=== PATIENT | male | born 1985 | race Hispanic/Latino ===

== ENCOUNTER 2022-11-02 13:31 | Emergency (ER) | payer SELFPAY ==
[2022-11-02 14:47] LABS: Absolute Lymphocytes (CBC) 1.3 K/uL (0.7-4.9); Hematocrit 42.3 % (39.6-49.0); Lymphocytes % 17.3 % (15.3-44.8); MCV 90.3 fL (80-100); MPV 9.3 fL (7.6-11.3); RBC Red Blood Cell Count 4.68 M/uL (4.33-5.43)
--- NOTE | 2022-11-02 15:04 | RAD REPORT ---
EXAM DESCRIPTION: RAD - Chest Single View - 11/02/2022 2:27 pm CLINICAL HISTORY: DYSPNEA Chest pain. COMPARISON: No comparisons FINDINGS: Portable technique limits examination quality. The lungs are grossly clear. The heart is normal in size. No displaced fractures. IMPRESSION: No acute intrathoracic process suspected.
[2022-11-02 15:15] LABS: Albumin 3.9 g/dL (3.4-5.0); Bilirubin Total 1.2 mg/dL (0.2-1.0); Potassium 3.7 mmol/L (3.5-5.1); Protein, Total 7.5 g/dL (6.4-8.2); Thyroid Stimulating Hormone 0.993 uIU/mL (0.358-3.740); Troponin High Sensitivity 4.6 pg/mL (<58.9)
--- NOTE | 2022-11-02 15:24 | ER ---
Nurse's Notes [facility] Name: Bolivar Lezama Age: 37 yrs Sex: Male : 1985 Arrival Date: 11/02/2022 Time: 13:32 Bed 11 Private MD: Diagnosis: Anxiety disorder, unspecified Presentation: 11/02 13:43 Chief complaint: Patient states: he has been feeling anxious after eating meals for iw past month, it got worse over the past week, he feels light headed and starts breathing fast and sometimes he feels heartburn. Coronavirus screen: At this time, the client does not indicate any symptoms associated with coronavirus-19. Ebola Screen: Patient negative for fever greater than or equal to 101.5 degrees Fahrenheit, and additional compatible Ebola Virus Disease symptoms Patient denies exposure to infectious person. Patient denies travel to an Ebola-affected area in the 21 days before illness onset. No symptoms or risks identified at this time. Initial Sepsis Screen: Does the patient meet any 2 criteria? No. Patient's initial sepsis screen is negative. Does the patient have a suspected source of infection? No. Patient's initial sepsis screen is negative. Risk Assessment: Do you want to hurt yourself or someone else? Patient reports no desire to harm self or others. Onset of symptoms was September 2022. 13:43 Method Of Arrival: Ambulatory iw 13:43 Acuity: RASHAUN 3 iw Triage Assessment: 14:50 General: Appears in no apparent distress. uncomfortable, Behavior is cooperative, kr3 anxious. 15:54 Pain: Denies pain. kr3 Historical: - Allergies: 13:45 No Known Allergies; iw - Home Meds: 13:45 None [Active]; iw - PMHx: 13:45 None; iw - PSHx: 13:45 None; iw - Immunization history:: Client reports receiving the 2nd dose of the Covid vaccine. - Social history:: Smoking status: Patient reports the use of cigarette tobacco products, smokes one-half pack cigarettes per day. - Family history:: not pertinent. Screenin:44 [facility] ED Fall Risk Assessment (Adult) History of falling in the last 3 months, kr3 including since admission No falls in past 3 months (0 pts) Confusion or Disorientation No (0 pts) Intoxicated or Sedated No (0 pts) Impaired Gait No (0 pts) Mobility Assist Device Used No (0 pt) Altered Elimination No (0 pt) Score/Fall Risk Level 0 - 2 = Low Risk Oriented to surroundings, Maintained a safe environment, Assessed \T\ reinforced patient's understanding of fall precautions, Hourly rounding (assess needs \T\ fall precautionary measures) done. Abuse screen: Denies threats or abuse. Nutritional screening: No deficits noted. Tuberculosis screening: No symptoms or risk factors identified. Assessment: 15:20 Reassessment: Patient appears in no apparent distress at this time. Patient and/or kr3 family updated on plan of care and expected duration. Pain level reassessed. Patient is alert, oriented x 3, equal unlabored respirations, skin warm/dry/pink. Vital Signs: 13:43 BP 148 / 96; Pulse 73; Resp 16; Temp 98.1; Pulse Ox 100% on R/A; Weight 86.18 kg; iw Height 5 ft. 7 in. (170.18 cm); 15:20 BP 122 / 92; Pulse 82; Resp 17; Pulse Ox 100% on R/A; kr3 13:43 Body Mass Index 29.76 (86.18 kg, 170.18 cm) iw ED Course: 13:32 Patient arrived in ED. as 13:45 Triage completed. iw 13:46 Arm band placed on. iw 13:47 Phill Baum MD is Attending Physician. rt 14:00 Bed in low position. Call light in reach. Side rails up X 1. kr3 14:09 Pamella Cunningham, RN is Primary Nurse. kr3 14:29 Chest Single View XRAY In Process Unspecified. EDMS 14:36 Lipase Sent. bc6 14:36 Troponin High Sensitivity Sent. bc6 14:36 TSH Sent. bc6 14:36 CMP Sent. bc6 14:36 CBC with Diff Sent. bc6 14:36 Initial lab(s) drawn, by me, sent to lab. Inserted saline lock: 20 gauge in right bc6 antecubital area, using aseptic technique. 14:45 IV discontinued, intact, bleeding controlled, No redness/swelling at site. Pressure kr3 dressing applied. 15:53 No provider procedures requiring assistance completed. kr3 Administered Medications: No medications were administered Medication: 15:54 VIS not applicable for this client. kr3 Outcome: 15:23 Discharge ordered by . rt 15:52 Patient left the ED. kr3 15:54 Discharged to home ambulatory. kr3 15:54 Condition: stable 15:54 Discharge instructions given to patient, Instructed on discharge instructions, follow up and referral plans. Demonstrated understanding of instructions, follow-up care. Signatures: Dispatcher [employer] Cary Thomas Irene, RN RN iw Pamella Cunningham RN RN kr3 Phill Baum MD MD rt Jaylin Samayoa 6 Corrections: (The following items were deleted from the chart) 13:48 13:43 Pulse 73bpm; Resp 16bpm; Pulse Ox 100% RA; Temp 98.1F; 86.18 kg; Height 5 ft. 7 iw in.; BMI: 29.7; iw
--- NOTE | 2022-11-02 15:24 | EDPHYS ---
Physician Documentation [facility] Name: Bolivar Lezama Age: 37 yrs Sex: Male : 1985 Arrival Date: 11/02/2022 Time: 13:32 Bed 11 Private MD: ED Physician Phill Baum HPI: 11/02 14:17 This 37 yrs old Male presents to ER via Ambulatory with complaints of Anxiety, rt Doesn't Feel Right. 14:17 Patient presents to the ED with reported anxiety attacks that occur after eating. It rt been present for several weeks, however, are becoming more frequent. He denies any suicidal thoughts. The patient states that he is short of breath when these occur. He denies any chest pain, acute complaints. Symptoms are moderate severity, no other aggravating alleviating factors.. Historical: - Allergies: 13:45 No Known Allergies; iw - Home Meds: 13:45 None [Active]; iw - PMHx: 13:45 None; iw - PSHx: 13:45 None; iw - Immunization history:: Client reports receiving the 2nd dose of the Covid vaccine. - Social history:: Smoking status: Patient reports the use of cigarette tobacco products, smokes one-half pack cigarettes per day. - Family history:: not pertinent. ROS: 14:17 Constitutional: Negative for fever, chills, and weight loss, Cardiovascular: Negative rt for chest pain, palpitations, and edema, Abdomen/GI: Negative for abdominal pain, nausea, vomiting, diarrhea, and constipation, MS/Extremity: Negative for injury and deformity, Skin: Negative for injury, rash, and discoloration, Psych: Negative for depression, anxiety, suicide ideation, homicidal ideation, and hallucinations. 14:17 Respiratory: Positive for shortness of breath, Negative for cough. 14:17 Psych: Positive for anxiety, Negative for suicidal ideation. Exam: 14:17 Constitutional: This is a well developed, well nourished patient who is awake, alert, rt and in no acute distress. Head/Face: Normocephalic, atraumatic. Chest/axilla: Normal chest wall appearance and motion. Nontender with no deformity. No lesions are appreciated. Cardiovascular: Regular rate and rhythm with a normal S1 and S2. No gallops, murmurs, or rubs. Normal PMI, no JVD. No pulse deficits. Respiratory: Lungs have equal breath sounds bilaterally, clear to auscultation and percussion. No rales, rhonchi or wheezes noted. No increased work of breathing, no retractions or nasal flaring. Abdomen/GI: Soft, non-tender, with normal bowel sounds. No distension or tympany. No guarding or rebound. No evidence of tenderness throughout. Skin: Warm, dry with normal turgor. Normal color with no rashes, no lesions, and no evidence of cellulitis. MS/ Extremity: Pulses equal, no cyanosis. Neurovascular intact. Full, normal range of motion. Neuro: Awake and alert, GCS 15, oriented to person, place, time, and situation. Cranial nerves II-XII grossly intact. Motor strength 5/5 in all extremities. Sensory grossly intact. Cerebellar exam normal. Normal gait. Psych: Awake, alert, with orientation to person, place and time. Behavior, mood, and affect are within normal limits. 14:17 ECG was reviewed by the Attending Physician. Vital Signs: 13:43 BP 148 / 96; Pulse 73; Resp 16; Temp 98.1; Pulse Ox 100% on R/A; Weight 86.18 kg; iw Height 5 ft. 7 in. (170.18 cm); 15:20 BP 122 / 92; Pulse 82; Resp 17; Pulse Ox 100% on R/A; kr3 13:43 Body Mass Index 29.76 (86.18 kg, 170.18 cm) iw MDM: 13:50 Patient medically screened. rt 15:24 Differential Diagnosis Panic attack, dysrhythmia, electrolyte disturbance. Data rt reviewed: vital signs, nurses notes, lab test result(s), EKG, radiologic studies. Test considered but Not performed: CT: Very low suspicion for PE, CT scan not indicated. Historians other than the Patient: Parent: Discussed this with patient's mother. Care significantly affected by the following Social Determinants of Health: Misuse of alcohol and/or drugs. Counseling: I had a detailed discussion with the patient and/or guardian regarding: the need for outpatient follow up. 15:26 Counseling: I had a detailed discussion with the patient and/or guardian regarding: the rt historical points, exam findings, and any diagnostic results supporting the discharge/admit diagnosis, lab results, radiology results, smoking cessation. 11/02 14:02 Order name: CBC with Diff; Complete Time: 15:02 rt 11/02 14:02 Order name: CMP; Complete Time: 15:16 rt 11/02 14:02 Order name: TSH; Complete Time: 15:16 rt 11/02 14:02 Order name: Chest Single View XRAY; Complete Time: 15:06 rt 11/02 14:02 Order name: Troponin High Sensitivity; Complete Time: 15:16 rt 11/02 14:02 Order name: Lipase; Complete Time: 15:16 rt 11/02 14:02 Order name: EKG; Complete Time: 14:02 rt 11/02 14:02 Order name: EKG - Nurse/Tech; Complete Time: 14:18 rt EC:17 Rate is 79 beats/min. Rhythm is regular, Normal Sinus Rhythm with No ectopy. QRS [place] rt is Normal. ME interval is normal. QRS interval is normal. QT interval is normal. No Q waves. T waves are Normal. No ST changes noted. Interpreted by me. Administered Medications: No medications were administered Disposition Summary: 11/02/22 15:23 Discharge Ordered Location: Home rt Problem: an acute exacerbation rt Symptoms: have improved rt Condition: Stable rt Diagnosis - Anxiety disorder, unspecified rt Followup: rt - With: Private Physician - When: 2 - 3 days - Reason: Discharge Instructions: - Discharge Summary Sheet rt - Panic Attack rt - Managing Anxiety, Adult rt Forms: - Medication Reconciliation Form rt - Thank You Letter rt - Antibiotic Education rt - Prescription Opioid Use rt Signatures: Dispatcher [employer] Elisa Lee, Phill Smith RN, MD MD rt
[2022-11-02 16:13] VITALS: TEMP 98.1; O2SAT 100
[2022-11-02 16:14] VITALS: BP 122/92
== END 2022-11-02 15:52 | disposition home or self-care (01) ==
LOC: ER 13:31
DX: F41.9 Anxiety disorder, unspecified (principal); F17.210 Nicotine dependence, cigarettes, uncomplicated
CPT/HCPCS: 36415; 71045; 80053; 83690; 84443; 84484; 85025; 93005; 99283